=== PATIENT | male | born 1975 | race Two or more races ===

== ENCOUNTER 2020-09-02 08:47 | Day surgery (SDC) | payer OTHER ==
[~2020-09-02 08:47] MED LIST: COZAAR25 MG PO; DITROPAN XL10 MG PO; IMIPRAMINE HCL50 MG PO
== END 2020-09-02 17:35 | disposition home or self-care (01) ==
LOC: CIR.AMB 08:47
PROVIDERS: ATTEND Urology
DX: D29.4 Benign neoplasm of scrotum (principal); Z20.828 Contact with and (suspected) exposure to other viral communicable diseases